=== PATIENT | female | born 1960 | race African-American/Black ===

== ENCOUNTER 2021-03-09 17:51 | Inpatient (IN) | payer MEDICAID, SELFPAY ==
[~2021-03-09 17:51] MED LIST: Iopamidol 370 76% 100 ML VIAL ONE
[2021-03-09 18:47] LABS: Hemoglobin 10.5 g/dL (12.0-16.0); Mean Corpuscular HGB CONC 30.3 g/dL (32.0-36.0); Mean Corpuscular Hemoglobin 25.2 pg (27.0-31.0); Mean Corpuscular Volume 83.3 fL (78.0-98.0); Mean Platelet Volume 6.9 fL (7.4-10.4); Platelet Count 448 thou/uL (130-400); RBC Distribution Width 13.3 % (11.5-14.5); Red Blood Cell (RBC) Count 4.15 mill/uL (4.20-5.40); White Blood Cell (WBC) Count 24.2 thou/uL (4.8-10.8)
[2021-03-09 19:01] LABS: Band 1 % (5-11); Hypochromia SLIGHT = 6-15 cells (100X) (0-5/hpf); Lymphocytes 6 % (21-51); MDiff Complete? YES; Monocytes 6 % (0-10); Neutrophil 86 % (42-75); Platelet Morphology Comment Appears Increased; Polychromasia SLIGHT = 2-3 cells (100X) (0-2/hpf); Reactive Lymphocytes 1 % (0-10)
[2021-03-09 19:05] LABS: ALT (SGPT) 14 U/L (8-55); AST (SGOT) 25 U/L (5-34); Albumin 2.6 g/dL (3.5-5.0); Alkaline Phosphatase 345 U/L (40-110); Anion Gap 18 mmol/L (10-20); BUN (Urea Nitrogen) 22 mg/dL (9.8-20.1); Bilirubin, Total 2.3 mg/dL (0.2-1.2); Calc. Creatinine Clearance 0 mL/min (70-130); Calcium 8.9 mg/dL (7.8-10.44); Carbon Dioxide 29 mmol/L (22-29); Chloride 82 mmol/L (98-107); Globulin 4.2 g/dL (2.4-3.5); Glucose 180 mg/dL (70-105); Protein, Total 6.8 g/dL (6.0-8.3); Sodium 124 mmol/L (136-145)
[2021-03-09] MEDS ORDERED: Cefepime 2 GM VIAL ONE (20:40)
[2021-03-09 21:37] LABS: Bacteria/HPF None Seen HPF (None Seen); Bilirubin 1+ (Negative); Blood, Urine Negative (Negative); Clarity Clear (Clear); Glucose, Urine (Dipstick) Normal (Negative); Ketone, Urine Negative (Negative); Leukocyte 250 Leu/uL (Negative); Nitrite Negative (Negative); Protein, Urine (Dipstick) 20 mg/dL (Neg-Trace); Renal Epithelial 0-3 HPF (None Seen); Specific Gravity, Urine 1.039 (1.002-1.036); Urobilinogen Normal mg/dL (Less than 2); pH, Urine 5.5 (5.0-9.0)
[2021-03-09] MEDS ORDERED: Ondansetron PF 4 MG/2 ML Vial ONE (21:45)
[2021-03-09] MEDS ORDERED: Morphine 4 MG/ML VIAL ONE (21:45)
[2021-03-09 22:36] LABS: SARS-CoV-2 NAA Rapid Test Not Detected (NotDetected)
[2021-03-10] MEDS ORDERED: Fentanyl 100 MCG/2 ML VIAL ONE (01:22)
[2021-03-10] MEDS ORDERED: Ondansetron PF 4 MG/2 ML Vial IVP PRN (06:57)
[2021-03-10] MEDS ORDERED: Dextrose 5% in Water 1,000 ML IV PRN (07:01)
[2021-03-10] MEDS ORDERED: Dextrose 50% Abboject 50 ML SYRINGE SLOW IVP PRN (07:01)
[2021-03-10] MEDS ORDERED: HumaLOG 300 UNITS/3 ML VIAL SC PRN (07:01)
[2021-03-10] MEDS ORDERED: Sodium Chloride 0.9% 1,000 ML IV SCH (07:15)
[2021-03-10 07:35] LABS: Hemoglobin 9.3 g/dL (12.0-16.0); Mean Corpuscular HGB CONC 30.5 g/dL (32.0-36.0); Mean Corpuscular Hemoglobin 25.9 pg (27.0-31.0); Mean Corpuscular Volume 84.9 fL (78.0-98.0); Mean Platelet Volume 6.5 fL (7.4-10.4); Platelet Count 335 thou/uL (130-400); RBC Distribution Width 13.5 % (11.5-14.5); Red Blood Cell (RBC) Count 3.61 mill/uL (4.20-5.40); White Blood Cell (WBC) Count 25.4 thou/uL (4.8-10.8)
[2021-03-10 08:03] LABS: ALT (SGPT) 13 U/L (8-55); AST (SGOT) 24 U/L (5-34); Albumin 2.2 g/dL (3.5-5.0); Alkaline Phosphatase 274 U/L (40-110); Anion Gap 16 mmol/L (10-20); BUN (Urea Nitrogen) 17 mg/dL (9.8-20.1); Bilirubin, Direct 1.6 mg/dL (0.1-0.3); Bilirubin, Total 1.9 mg/dL (0.2-1.2); Calc. Creatinine Clearance 0 mL/min (70-130); Calcium 8.2 mg/dL (7.8-10.44); Carbon Dioxide 25 mmol/L (22-29); Chloride 85 mmol/L (98-107); Glucose 140 mg/dL (70-105); Potassium 5.1 mmol/L (3.5-5.1); Protein, Total 5.7 g/dL (6.0-8.3); Sodium 121 mmol/L (136-145)
[2021-03-10] MEDS ORDERED: HYDROmorphone 0.5 MG/0.5 ML SYRINGE SLOW IVP SCH (08:15)
[2021-03-10 08:41] LABS: #Lymphocytes 0.9 thou/uL (1.20-3.40); #Monocytes 1.4 thou/uL (0.11-0.59); #Neutrophils 23.1 thou/uL (1.40-6.50); %Eosinophils 0.1 % (0.0-10.0); %Lymphocytes 3.6 % (21.0-51.0); %Monocytes 5.3 % (0.0-10.0); Hypochromia SLIGHT = 6-15 cells (100X) (0-5/hpf); MDiff Complete? YES; Platelet Morphology Comment Appears Adequate; Polychromasia SLIGHT = 2-3 cells (100X) (0-2/hpf)
[2021-03-10] MEDS ORDERED: Cefepime 1 GM in Sodium Chloride 0.9% 100 ML IVPB SCH (09:00)
[2021-03-10] MEDS ORDERED: Acetaminophen 500 MG TAB ONE (09:09)
[2021-03-10] MEDS ORDERED: Pantoprazole 40 MG VIAL ONE (09:09)
[2021-03-10] MEDS ORDERED: Cefepime 1 GM VIAL ONE (09:09)
[2021-03-10] MEDS ORDERED: Enoxaparin Sodium 40 MG/0.4 ML SYRINGE ONE (09:09)
[2021-03-10] MEDS ORDERED: HYDROmorphone 0.5 MG/0.5 ML SYRINGE ONE (09:11)
[2021-03-10] MEDS: Acetaminophen 325 MG TAB PO PRN (09:20)
[2021-03-10] MEDS: Enoxaparin Sodium 40 MG/0.4 ML SYRINGE SC SCH (09:20)
[2021-03-10] MEDS ORDERED: Meropenem 1 GM in Sodium Chloride 0.9% 100 ML IVPB SCH ×2 (10:17→10:30)
[2021-03-10] MEDS ORDERED: Bisacodyl 10 MG SUPP PR PRN (10:18)
[2021-03-10 11:18] LABS: Anion Gap 16 mmol/L (10-20); BUN (Urea Nitrogen) 17 mg/dL (9.8-20.1); Calc. Creatinine Clearance 112 mL/min (70-130); Calcium 8.3 mg/dL (7.8-10.44); Carbon Dioxide 26 mmol/L (22-29); Chloride 85 mmol/L (98-107); Glucose 133 mg/dL (70-105); Potassium 5.1 mmol/L (3.5-5.1); Sodium 122 mmol/L (136-145)
[2021-03-10] MEDS ORDERED: Vancomycin 1 GM/200 ML BAG ONE (11:43)
[2021-03-10 11:58] LABS: Free T4 (Free Thyroxine) 0.95 ng/dL (0.70-1.48); Thyroid Stimulating Hormone 1.3748 uIU/mL (0.35-4.94)
[2021-03-10] MEDS ORDERED: Vancomycin 1.5 GRAM/300 ML BAG 1.5 GM in Premix Bag 1 BAG IVPB SCH (12:00)
[2021-03-10] MEDS: Vancomycin HCl 1.5 GM in Sodium Chloride 0.9% 250 ML 300 ML IVPB SCH (13:27)
[2021-03-10] MEDS: oxyCODONE 5 MG TAB PO PRN ×2 (14:29→21:36)
[2021-03-10 15:01] LABS: Anion Gap 15 mmol/L (10-20); BUN (Urea Nitrogen) 18 mg/dL (9.8-20.1); Calc. Creatinine Clearance 115 mL/min (70-130); Calcium 8.4 mg/dL (7.8-10.44); Carbon Dioxide 27 mmol/L (22-29); Chloride 87 mmol/L (98-107); Glucose 124 mg/dL (70-105); Potassium 5.2 mmol/L (3.5-5.1); Sodium 124 mmol/L (136-145)
[2021-03-10 16:10] LABS: PTT 81.2 sec (22.9-36.1); Prothrombin Time 41.2 sec (12.0-14.7)
[2021-03-10 16:17] LABS: INR-International Normal Ratio 4.2
[2021-03-10] MEDS ORDERED: Phytonadione 10 MG in Sodium Chloride 0.9% 50 ML IVPB SCH (18:00)
[2021-03-10 19:02] LABS: Anion Gap 14 mmol/L (10-20); BUN (Urea Nitrogen) 16 mg/dL (9.8-20.1); Calc. Creatinine Clearance 112 mL/min (70-130); Calcium 8.1 mg/dL (7.8-10.44); Carbon Dioxide 27 mmol/L (22-29); Chloride 87 mmol/L (98-107); Glucose 115 mg/dL (70-105); Sodium 123 mmol/L (136-145)
[2021-03-10] MEDS: Meropenem 1 GM in Sodium Chloride 0.9% 100 ML IVPB SCH (21:25)
[2021-03-10] MEDS: Docusate 100 MG CAP PO SCH (21:25)
[2021-03-10] MEDS ORDERED: traZODone HCl 50 MG TAB PO SCH (21:30)
[2021-03-10 23:01] LABS: Anion Gap 17 mmol/L (10-20); BUN (Urea Nitrogen) 14 mg/dL (9.8-20.1); Calc. Creatinine Clearance 117 mL/min (70-130); Calcium 8.3 mg/dL (7.8-10.44); Carbon Dioxide 25 mmol/L (22-29); Chloride 87 mmol/L (98-107); Glucose 114 mg/dL (70-105); Potassium 5.9 mmol/L (3.5-5.1); Sodium 123 mmol/L (136-145)
[2021-03-11] MEDS: Vancomycin HCl 1.5 GM in Sodium Chloride 0.9% 250 ML 300 ML IVPB SCH ×2 (00:06→17:17)
[2021-03-11] MEDS ORDERED: Morphine 4 MG/ML VIAL SLOW IVP SCH (01:00)
[2021-03-11] MEDS: Acetaminophen 325 MG TAB PO PRN (03:51)
[2021-03-11] MEDS: Meropenem 1 GM in Sodium Chloride 0.9% 100 ML IVPB SCH ×3 (03:58→21:03)
[2021-03-11] MEDS ORDERED: HYDROCODONE BITARTRATE 20 MG PO PRN (04:41)
[2021-03-11 04:44] LABS: #Lymphocytes 0.8 thou/uL (1.20-3.40); #Monocytes 1.3 thou/uL (0.11-0.59); #Neutrophils 21.9 thou/uL (1.40-6.50); %Basophils 0.2 % (0.0-1.0); %Eosinophils 0.2 % (0.0-10.0); %Lymphocytes 3.5 % (21.0-51.0); %Monocytes 5.5 % (0.0-10.0); %Neutrophils 90.6 % (42.0-75.0); Mean Corpuscular HGB CONC 29.8 g/dL (32.0-36.0); Mean Corpuscular Hemoglobin 24.9 pg (27.0-31.0); Mean Corpuscular Volume 83.7 fL (78.0-98.0); Mean Platelet Volume 6.9 fL (7.4-10.4); Platelet Count 342 thou/uL (130-400); RBC Distribution Width 13.4 % (11.5-14.5); Red Blood Cell (RBC) Count 3.61 mill/uL (4.20-5.40); White Blood Cell (WBC) Count 24.1 thou/uL (4.8-10.8)
[2021-03-11 05:00] LABS: PTT 54.3 sec (22.9-36.1)
[2021-03-11 05:01] LABS: INR-International Normal Ratio 1.5; Prothrombin Time 18.3 sec (12.0-14.7)
[2021-03-11 05:07] LABS: Anion Gap 15 mmol/L (10-20); BUN (Urea Nitrogen) 13 mg/dL (9.8-20.1); Calc. Creatinine Clearance 127 mL/min (70-130); Carbon Dioxide 25 mmol/L (22-29); Chloride 88 mmol/L (98-107); Glucose 122 mg/dL (70-105); Sodium 123 mmol/L (136-145)
[2021-03-11] MEDS: oxyCODONE 5 MG TAB PO PRN ×2 (05:12→13:11)
[2021-03-11] MEDS ORDERED: Fentanyl 100 MCG/2 ML VIAL ONE (11:12)
[2021-03-11] MEDS ORDERED: Midazolam HCl 2 mg/2 ml Vial ONE (11:12)
[2021-03-11] MEDS ORDERED: Lidocaine 1% PF 5 ML VIAL ONE (11:12)
[2021-03-11] MEDS ORDERED: Sodium Bicarbonate 2.5 MEQ/5 ML VIAL ONE (11:12)
[2021-03-11 13:37] LABS: Anion Gap 19 mmol/L (10-20); BUN (Urea Nitrogen) 13 mg/dL (9.8-20.1); Calc. Creatinine Clearance 131 mL/min (70-130); Calcium 8.2 mg/dL (7.8-10.44); Carbon Dioxide 22 mmol/L (22-29); Chloride 88 mmol/L (98-107); Glucose 130 mg/dL (70-105); Potassium 5.1 mmol/L (3.5-5.1); Sodium 124 mmol/L (136-145)
[2021-03-11] MEDS: Docusate 100 MG CAP PO SCH ×2 (17:44→20:59)
[2021-03-11] MEDS: Enoxaparin Sodium 40 MG/0.4 ML SYRINGE SC SCH (17:44)
[2021-03-11] MEDS: Polyethylene Glycol 3350 17 GM Packet PO SCH (17:46)
[2021-03-11] MEDS: traZODone HCl 50 MG TAB PO SCH (20:59)
[2021-03-11] MEDS: Melatonin 3 MG TAB PO SCH (21:00)
[2021-03-11] MEDS: oxyCODONE ER 20 MG TAB PO SCH (21:00)
[2021-03-12] MEDS: oxyCODONE 5 MG TAB PO PRN ×3 (04:19→16:55)
[2021-03-12 04:45] LABS: #Eosinphils 0.1 thou/uL (0.0-0.7); #Lymphocytes 0.7 thou/uL (1.20-3.40); #Monocytes 1.3 thou/uL (0.11-0.59); #Neutrophils 18.3 thou/uL (1.40-6.50); %Eosinophils 0.6 % (0.0-10.0); %Lymphocytes 3.5 % (21.0-51.0); %Monocytes 6.5 % (0.0-10.0); %Neutrophils 89.4 % (42.0-75.0); Hemoglobin 8.5 g/dL (12.0-16.0); Mean Corpuscular HGB CONC 30.1 g/dL (32.0-36.0); Mean Corpuscular Hemoglobin 25.6 pg (27.0-31.0); Mean Platelet Volume 7.5 fL (7.4-10.4); Platelet Count 276 thou/uL (130-400); RBC Distribution Width 13.7 % (11.5-14.5); Red Blood Cell (RBC) Count 3.33 mill/uL (4.20-5.40); White Blood Cell (WBC) Count 20.5 thou/uL (4.8-10.8)
[2021-03-12 05:11] LABS: Anion Gap 14 mmol/L (10-20); BUN (Urea Nitrogen) 14 mg/dL (9.8-20.1); Calc. Creatinine Clearance 110 mL/min (70-130); Carbon Dioxide 25 mmol/L (22-29); Chloride 89 mmol/L (98-107); Glucose 185 mg/dL (70-105); Potassium 4.6 mmol/L (3.5-5.1); Sodium 123 mmol/L (136-145)
[2021-03-12] MEDS: Meropenem 1 GM in Sodium Chloride 0.9% 100 ML IVPB SCH ×3 (05:33→21:26)
[2021-03-12] MEDS: HumaLOG 300 UNITS/3 ML VIAL SC PRN (06:12)
[2021-03-12] MEDS ORDERED: Vancomycin HCl 1.5 GM in Sodium Chloride 0.9% 250 ML 300 ML IVPB SCH (08:00)
[2021-03-12] MEDS: Vancomycin HCl 1.5 GM in Sodium Chloride 0.9% 250 ML 300 ML IVPB SCH (08:35)
[2021-03-12] MEDS: oxyCODONE ER 20 MG TAB PO SCH ×2 (09:33→20:33)
[2021-03-12] MEDS: Polyethylene Glycol 3350 17 GM Packet PO SCH (09:35)
[2021-03-12] MEDS: Docusate 100 MG CAP PO SCH ×2 (09:35→20:32)
[2021-03-12] MEDS: Enoxaparin Sodium 40 MG/0.4 ML SYRINGE SC SCH (09:35)
[2021-03-12 12:54] LABS: Anion Gap 16 mmol/L (10-20); BUN (Urea Nitrogen) 14 mg/dL (9.8-20.1); Calc. Creatinine Clearance 128 mL/min (70-130); Calcium 7.9 mg/dL (7.8-10.44); Carbon Dioxide 24 mmol/L (22-29); Chloride 88 mmol/L (98-107); Glucose 167 mg/dL (70-105); Potassium 4.6 mmol/L (3.5-5.1); Sodium 123 mmol/L (136-145)
[2021-03-12] MEDS ORDERED: Sodium Chloride 0.9% 1,000 ML IV SCH (14:00)
[2021-03-12] MEDS ORDERED: valACYclovir 500 MG TAB PO SCH (16:30)
[2021-03-12 19:31] LABS: Vancomycin, Trough 12.5 ug/mL
[2021-03-12] MEDS: valACYclovir 500 MG TAB PO SCH (20:32)
[2021-03-12] MEDS: Melatonin 3 MG TAB PO SCH (20:33)
[2021-03-12] MEDS: Senokot 8.6 MG TAB PO PRN (20:33)
[2021-03-12] MEDS: traZODone HCl 50 MG TAB PO SCH (20:34)
[2021-03-12 21:13] LABS: Anion Gap 16 mmol/L (10-20); BUN (Urea Nitrogen) 17 mg/dL (9.8-20.1); Calc. Creatinine Clearance 108 mL/min (70-130); Calcium 7.8 mg/dL (7.8-10.44); Carbon Dioxide 24 mmol/L (22-29); Chloride 88 mmol/L (98-107); Glucose 187 mg/dL (70-105); Potassium 4.4 mmol/L (3.5-5.1); Sodium 124 mmol/L (136-145)
[2021-03-13] MEDS: oxyCODONE 5 MG TAB PO PRN ×6 (00:14→23:44)
[2021-03-13 04:46] LABS: Hemoglobin 10.5 g/dL (12.0-16.0); Mean Corpuscular HGB CONC 32.6 g/dL (32.0-36.0); Mean Corpuscular Hemoglobin 27.7 pg (27.0-31.0); Mean Corpuscular Volume 84.7 fL (78.0-98.0); Platelet Count 189 thou/uL (130-400); RBC Distribution Width 14.6 % (11.5-14.5); White Blood Cell (WBC) Count 27.1 thou/uL (4.8-10.8)
[2021-03-13] MEDS ORDERED: Morphine 4 MG/ML VIAL SLOW IVP PRN (05:14)
[2021-03-13 05:16] LABS: Band 3 % (5-11); Lymphocytes 8 % (21-51); MDiff Complete? YES; Monocytes 5 % (0-10); Neutrophil 84 % (42-75)
[2021-03-13] MEDS: Meropenem 1 GM in Sodium Chloride 0.9% 100 ML IVPB SCH ×3 (05:32→22:09)
[2021-03-13] MEDS: HumaLOG 300 UNITS/3 ML VIAL SC PRN (05:43)
[2021-03-13] MEDS: Enoxaparin Sodium 40 MG/0.4 ML SYRINGE SC SCH (07:48)
[2021-03-13] MEDS: Senokot 8.6 MG TAB PO PRN (07:49)
[2021-03-13] MEDS: Docusate 100 MG CAP PO SCH ×2 (07:49→22:22)
[2021-03-13] MEDS: valACYclovir 500 MG TAB PO SCH ×2 (07:49→20:53)
[2021-03-13] MEDS: Polyethylene Glycol 3350 17 GM Packet PO SCH (07:50)
[2021-03-13] MEDS: oxyCODONE ER 20 MG TAB PO SCH ×2 (08:54→20:53)
[2021-03-13 12:21] LABS: Anion Gap 13 mmol/L (10-20); BUN (Urea Nitrogen) 21 mg/dL (9.8-20.1); Calc. Creatinine Clearance 111 mL/min (70-130); Calcium 7.9 mg/dL (7.8-10.44); Carbon Dioxide 24 mmol/L (22-29); Chloride 89 mmol/L (98-107); Glucose 168 mg/dL (70-105); Potassium 4.8 mmol/L (3.5-5.1); Sodium 121 mmol/L (136-145)
[2021-03-13] MEDS ORDERED: Tolvaptan 15 MG TAB PO SCH (14:00)
[2021-03-13] MEDS ORDERED: TOLVAPTAN 30 MG TAB PO SCH (14:15)
[2021-03-13 20:41] LABS: Anion Gap 18 mmol/L (10-20); BUN (Urea Nitrogen) 25 mg/dL (9.8-20.1); Calc. Creatinine Clearance 98 mL/min (70-130); Carbon Dioxide 22 mmol/L (22-29); Chloride 86 mmol/L (98-107); Glucose 248 mg/dL (70-105); Potassium 5.1 mmol/L (3.5-5.1); Sodium 121 mmol/L (136-145)
[2021-03-13] MEDS: Melatonin 3 MG TAB PO SCH (20:53)
[2021-03-13] MEDS: traZODone HCl 50 MG TAB PO SCH (20:57)
[2021-03-14] MEDS: oxyCODONE 5 MG TAB PO PRN ×5 (04:29→23:07)
[2021-03-14] MEDS: Meropenem 1 GM in Sodium Chloride 0.9% 100 ML IVPB SCH (06:08)
[2021-03-14] MEDS: HumaLOG 300 UNITS/3 ML VIAL SC PRN ×2 (06:08→11:07)
[2021-03-14 07:44] LABS: Hemoglobin 9.4 g/dL (12.0-16.0); Mean Corpuscular HGB CONC 29.3 g/dL (32.0-36.0); Mean Corpuscular Volume 85.4 fL (78.0-98.0); Mean Platelet Volume 7.6 fL (7.4-10.4); Platelet Count 248 thou/uL (130-400); RBC Distribution Width 14.5 % (11.5-14.5); Red Blood Cell (RBC) Count 3.74 mill/uL (4.20-5.40); White Blood Cell (WBC) Count 20.1 thou/uL (4.8-10.8)
[2021-03-14 07:55] LABS: Anion Gap 13 mmol/L (10-20); BUN (Urea Nitrogen) 28 mg/dL (9.8-20.1); Calc. Creatinine Clearance 102 mL/min (70-130); Calcium 8.3 mg/dL (7.8-10.44); Carbon Dioxide 28 mmol/L (22-29); Chloride 90 mmol/L (98-107); Glucose 210 mg/dL (70-105); Potassium 5.7 mmol/L (3.5-5.1); Sodium 125 mmol/L (136-145)
[2021-03-14] MEDS: Enoxaparin Sodium 40 MG/0.4 ML SYRINGE SC SCH (08:06)
[2021-03-14] MEDS: valACYclovir 500 MG TAB PO SCH ×2 (08:06→20:53)
[2021-03-14] MEDS: Polyethylene Glycol 3350 17 GM Packet PO SCH (08:06)
[2021-03-14] MEDS: Docusate 100 MG CAP PO SCH ×2 (08:06→20:53)
[2021-03-14] MEDS: oxyCODONE ER 20 MG TAB PO SCH ×2 (08:58→20:53)
[2021-03-14 14:53] LABS: Anion Gap 17 mmol/L (10-20); BUN (Urea Nitrogen) 32 mg/dL (9.8-20.1); Calc. Creatinine Clearance 95 mL/min (70-130); Calcium 8.2 mg/dL (7.8-10.44); Carbon Dioxide 23 mmol/L (22-29); Chloride 89 mmol/L (98-107); Glucose 134 mg/dL (70-105); Potassium 4.4 mmol/L (3.5-5.1); Sodium 125 mmol/L (136-145)
[2021-03-14] MEDS: traZODone HCl 50 MG TAB PO SCH (20:53)
[2021-03-14] MEDS: Cefdinir 300 MG CAP PO SCH (20:53)
[2021-03-14] MEDS: Melatonin 3 MG TAB PO SCH (20:53)
[2021-03-15] MEDS: oxyCODONE 5 MG TAB PO PRN ×2 (04:26→11:49)
[2021-03-15 05:09] LABS: Anion Gap 15 mmol/L (10-20); BUN (Urea Nitrogen) 32 mg/dL (9.8-20.1); Calc. Creatinine Clearance 99 mL/min (70-130); Carbon Dioxide 27 mmol/L (22-29); Chloride 87 mmol/L (98-107); Glucose 191 mg/dL (70-105); Potassium 4.5 mmol/L (3.5-5.1); Sodium 124 mmol/L (136-145)
[2021-03-15] MEDS: HumaLOG 300 UNITS/3 ML VIAL SC PRN ×2 (07:54→11:50)
[2021-03-15] MEDS: Cefdinir 300 MG CAP PO SCH ×2 (08:17→20:36)
[2021-03-15] MEDS: oxyCODONE ER 20 MG TAB PO SCH ×2 (08:17→20:37)
[2021-03-15] MEDS: Enoxaparin Sodium 40 MG/0.4 ML SYRINGE SC SCH (08:17)
[2021-03-15] MEDS: Polyethylene Glycol 3350 17 GM Packet PO SCH (08:18)
[2021-03-15] MEDS: Docusate 100 MG CAP PO SCH ×2 (08:18→20:37)
[2021-03-15] MEDS: valACYclovir 500 MG TAB PO SCH ×2 (08:18→20:36)
[2021-03-15] MEDS ORDERED: Sodium Chloride 1 GM TAB PO SCH (09:15)
[2021-03-15] MEDS ORDERED: Furosemide 40 MG/4 ML VIAL SLOW IVP SCH (11:30)
[2021-03-15] MEDS: Sodium Chloride 1 GM TAB PO SCH ×2 (15:28→20:39)
[2021-03-15 16:49] LABS: Sodium 127 mmol/L (136-145)
[2021-03-15] MEDS: traZODone HCl 50 MG TAB PO SCH (20:36)
[2021-03-15] MEDS: Melatonin 3 MG TAB PO SCH (20:37)
[2021-03-16] MEDS: oxyCODONE 5 MG TAB PO PRN ×4 (01:09→17:44)
[2021-03-16 07:35] LABS: Anion Gap 15 mmol/L (10-20); BUN (Urea Nitrogen) 40 mg/dL (9.8-20.1); Calc. Creatinine Clearance 91 mL/min (70-130); Calcium 8.1 mg/dL (7.8-10.44); Carbon Dioxide 26 mmol/L (22-29); Chloride 89 mmol/L (98-107); Glucose 169 mg/dL (70-105); Sodium 126 mmol/L (136-145)
[2021-03-16] MEDS: Enoxaparin Sodium 40 MG/0.4 ML SYRINGE SC SCH (08:44)
[2021-03-16] MEDS: oxyCODONE ER 20 MG TAB PO SCH (08:45)
[2021-03-16] MEDS: valACYclovir 500 MG TAB PO SCH ×2 (08:45→20:44)
[2021-03-16] MEDS: Sodium Chloride 1 GM TAB PO SCH ×3 (08:45→20:44)
[2021-03-16] MEDS: Docusate 100 MG CAP PO SCH ×2 (08:45→20:46)
[2021-03-16] MEDS: Cefdinir 300 MG CAP PO SCH ×2 (08:45→20:46)
[2021-03-16] MEDS: Polyethylene Glycol 3350 17 GM Packet PO SCH (08:46)
[2021-03-16] MEDS ORDERED: Furosemide 40 MG/4 ML VIAL SLOW IVP SCH (09:15)
[2021-03-16 09:29] VITALS: BMI 22.1
[2021-03-16 11:41] LABS: SARS-CoV-2 PCR by NAA DETECTED (NotDetected)
[2021-03-16] MEDS: Albumin 25% 25 GM/100 ML BOT IVPB SCH ×2 (12:03→17:44)
[2021-03-16] MEDS: HumaLOG 300 UNITS/3 ML VIAL SC PRN ×2 (12:04→17:01)
[2021-03-16 17:49] LABS: Anion Gap 13 mmol/L (10-20); BUN (Urea Nitrogen) 37 mg/dL (9.8-20.1); Calc. Creatinine Clearance 86 mL/min (70-130); Calcium 7.9 mg/dL (7.8-10.44); Carbon Dioxide 27 mmol/L (22-29); Chloride 90 mmol/L (98-107); Glucose 172 mg/dL (70-105); Potassium 3.8 mmol/L (3.5-5.1); Sodium 126 mmol/L (136-145)
[2021-03-16 18:39] LABS: Creatinine, Urine 41.24 mg/dL (47-110)
[2021-03-16] MEDS: traZODone HCl 50 MG TAB PO SCH (20:44)
[2021-03-16] MEDS: oxyCODONE ER 10 MG TAB PO SCH (20:45)
[2021-03-16] MEDS: Melatonin 3 MG TAB PO SCH (20:45)
[2021-03-17] MEDS: Albumin 25% 25 GM/100 ML BOT IVPB SCH ×2 (00:30→06:21)
[2021-03-17 07:54] VITALS: TEMP 97.8
[2021-03-17 07:59] LABS: #Eosinphils 0.1 thou/uL (0.0-0.7); #Lymphocytes 0.8 thou/uL (1.20-3.40); #Monocytes 0.9 thou/uL (0.11-0.59); #Neutrophils 13.2 thou/uL (1.40-6.50); %Basophils 0.1 % (0.0-1.0); %Eosinophils 0.5 % (0.0-10.0); %Lymphocytes 5.2 % (21.0-51.0); %Monocytes 5.8 % (0.0-10.0); %Neutrophils 88.4 % (42.0-75.0); Hemoglobin 7.7 g/dL (12.0-16.0); Mean Corpuscular HGB CONC 30.6 g/dL (32.0-36.0); Mean Corpuscular Hemoglobin 25.9 pg (27.0-31.0); Mean Corpuscular Volume 84.7 fL (78.0-98.0); Mean Platelet Volume 8.6 fL (7.4-10.4); Platelet Count 129 thou/uL (130-400); RBC Distribution Width 15.8 % (11.5-14.5); Red Blood Cell (RBC) Count 2.97 mill/uL (4.20-5.40); White Blood Cell (WBC) Count 14.9 thou/uL (4.8-10.8)
[2021-03-17 08:13] LABS: Anion Gap 16 mmol/L (10-20); BUN (Urea Nitrogen) 26 mg/dL (9.8-20.1); Calc. Creatinine Clearance 108 mL/min (70-130); Calcium 8.3 mg/dL (7.8-10.44); Carbon Dioxide 27 mmol/L (22-29); Chloride 93 mmol/L (98-107); Glucose 153 mg/dL (70-105); Potassium 3.8 mmol/L (3.5-5.1); Sodium 132 mmol/L (136-145)
[2021-03-17] MEDS: oxyCODONE ER 10 MG TAB PO SCH (08:21)
[2021-03-17] MEDS: Docusate 100 MG CAP PO SCH (08:21)
[2021-03-17] MEDS: Cefdinir 300 MG CAP PO SCH (08:21)
[2021-03-17] MEDS: Sodium Chloride 1 GM TAB PO SCH (08:22)
[2021-03-17] MEDS: Enoxaparin Sodium 40 MG/0.4 ML SYRINGE SC SCH (08:23)
[2021-03-17] MEDS: valACYclovir 500 MG TAB PO SCH (08:23)
[2021-03-17] MEDS: Polyethylene Glycol 3350 17 GM Packet PO SCH (08:23)
[2021-03-17] MEDS: Senokot 8.6 MG TAB PO PRN (10:02)
[2021-03-17] MEDS: HumaLOG 300 UNITS/3 ML VIAL SC PRN (12:20)
[2021-03-17 13:35] VITALS: BP 116/73
== END 2021-03-17 14:05 | disposition home or self-care (01) | DRG 435 ==
LOC: ERS 17:51 → 2NO 22:36 → ERHOLD 22:45 → OBSVTOIN 03-10 10:35 → 2NO 03-10 15:16 → T4-A 03-16 01:03
PROVIDERS: ADMIT Internal Medicine; ATTEND Internal Medicine
PROC: 0FB23ZX Excision of Left Lobe Liver, Percutaneous Approach, Diagnostic (ICD-10-PCS; principal; 2021-03-11)
PROC: 8E0ZXY6 Isolation (ICD-10-PCS; 2021-03-15)
DX: C78.7 Secondary malignant neoplasm of liver and intrahepatic bile duct (principal); U07.1 COVID-19; E43 Unspecified severe protein-calorie malnutrition; C25.0 Malignant neoplasm of head of pancreas; N39.0 Urinary tract infection, site not specified; E22.2 Syndrome of inappropriate secretion of antidiuretic hormone; B95.1 Streptococcus, group B, as the cause of diseases classified elsewhere; M54.9 Dorsalgia, unspecified; K59.00 Constipation, unspecified; E86.0 Dehydration; N94.89 Other specified conditions associated with female genital organs and menstrual cycle; A60.00 Herpesviral infection of urogenital system, unspecified; N18.2 Chronic kidney disease, stage 2 (mild); I12.9 Hypertensive chronic kidney disease with stage 1 through stage 4 chronic kidney disease, or unspecified chronic kidney disease; E11.22 Type 2 diabetes mellitus with diabetic chronic kidney disease; D63.1 Anemia in chronic kidney disease; E87.5 Hyperkalemia; E87.8 Other disorders of electrolyte and fluid balance, not elsewhere classified; Z90.710 Acquired absence of both cervix and uterus; Z82.49 Family history of ischemic heart disease and other diseases of the circulatory system; Z87.891 Personal history of nicotine dependence; Z79.899 Other long term (current) drug therapy; Z79.4 Long term (current) use of insulin; Z68.22 Body mass index [BMI] 22.0-22.9, adult
CPT/HCPCS: 36415; 36416; 47000; 70450; 71045; 72148; 74177; 76856; 76942; 80048; 80053; 80202; 81003; 81015; 82533; 82570; 83605; 83690; 83930; 83935; 84156; 84300; 84439; 84443; 84484; 85025; 85027; 85610; 85730; 86301; 87040; 87077; 87086; 88307; 88313; 88341; 88342; 93005; 93306; 96365; 96372; 96375; C9113; G0378; J0692; J1170; J1650; J1815; J1940; J2185; J2250; J2270; J2405; J3010; J3370; J3430; J3490; J7050; P9047; Q9967; U0002; U0003; U0005